=== PATIENT | female | born 1955 | race Caucasian/White ===

== ENCOUNTER 2016-10-07 18:30 | Emergency (ER) | payer OTHER, BC ==
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
[~2016-10-07 18:30] MED LIST: ACETAMINOPHEN PO; AMITRIPTYLINE H25 MG PO; CALCITONIN-SAL3.7 ML; LOTREL 10/20 MG1 CAP PO; MULTI-VITAMIN1 TAB PO; NORCO 5/325 TAB1 TAB PO; OS-CAL 500+D CA1 TAB PO; PANTOPRAZOLE SO40 MG PO; PERCOCET 7.5-31 EACH PO; PRILOSEC PO; PROMETRIUM PO; [UNRECOGNIZED DRUG - OTHER]
== END 2016-10-07 20:01 | disposition home or self-care (01) ==
LOC: SED 18:30
DX: S13.9XXA Sprain of joints and ligaments of unspecified parts of neck, initial encounter (principal); S23.3XXA Sprain of ligaments of thoracic spine, initial encounter; S43.401A Unspecified sprain of right shoulder joint, initial encounter; S20.211A Contusion of right front wall of thorax, initial encounter; Z87.891 Personal history of nicotine dependence; I10 Essential (primary) hypertension; V43.52XA Car driver injured in collision with other type car in traffic accident, initial encounter
CPT/HCPCS: 71250; 72125; 73030; 99284

== ENCOUNTER → 2017-02-04 | Outpatient (CLI) | payer BC ==
--- NOTE | ~2017-02-04 | BD1 ---
[facility] A Service of [facility] / [facility] RADIOLOGY TEXT RESULTS PATIENT: DARIN OWEN LOCATION: [facility] : 51 UNIT #: [id number] AGE: [address]: Jamey Mckeon MD SEX: F ORDER DR: [id number] [address] [address] [id number] O MR#: [id number] Acc #: [id number] NAME: DARIN OWEN : 1955 SEX: F STUDY DATE/TIME: 02/04/2017 8:03 UNIT: [facility] ROOM: STUDY DESCRIPTION: Dexa Bone Dens 1+ Site Attending Physician: Jamey Mckeon M.D. Referring Physician: Jamey Mckeon M.D. Ordering Physician: Jamey Mckeon M.D. Primary Care Physician: Jamey Mckeon M.D. MEDICAL IMAGING REPORT This report is preliminary unless electronic signature is present. EXAM DXA scan, 02/04/2017 HISTORY Status post menopause with no hormone replacement therapy. Osteopenia. Hypertension with blood pressure medication for 15 years. FINDINGS Bone mineral density in the lumbar spine from L1 through L4 was 1.292 g/cm2 which is 0.9 standard deviations above the mean when compared to the young adult reference population which is within the range of normal. This is 2.1 standard deviations above the mean when compared to the age-matched population. Compared with 02/07/2015 there has been a decrease in bone mineral density in the lumbar spine of 1.5%. Bone mineral density in the left femoral neck was 0.809 g/cm2 which is 1.6 standard deviations below the mean when compared to the young adult reference population which is characteristic of osteopenia. This is 0.5 standard deviations below the mean when compared to the age-matched population. Compared with 02/07/2015 there has been a decrease in bone mineral density in the left hip of 2.3%. Bone mineral density in the right femoral neck was 0.86 g/cm2 which is 1.3 standard deviations below the mean when compared to the young adult reference population which is characteristic of osteopenia. This is 0.1 standard deviations below the mean when compared to the age-matched population. Compared with 02/07/2015 there has been a decrease in bone mineral density in the right hip of 1%. IMPRESSION Bone mineral density in the lumbar spine within the range of normal and within the hips bilaterally characteristic of osteopenia. Compared with 02/07/2015 there has been a decrease in bone mineral density in the lumbar spine and the hips bilaterally. [facility] A Service of [facility] RADIOLOGY TEXT RESULTS PATIENT: DARIN OWEN LOCATION: [facility] : 53 UNIT #: [id number] AGE: [address]: Jamey Mckeon MD SEX: F ORDER DR: Dictated by... Jericho Woo M.D. THIS IS AN ELECTRONICALLY VERIFIED REPORT Jericho Woo M.D. at 02/08/2017 2:12 PM GRACIELA/александр TD: 02/08/2017 05:19 JOB #: [id number] MEDICAL IMAGING REPORT Page 1 of 1
== END | disposition home or self-care (01) ==
LOC: SRAD 07:53
DX: M81.0 Age-related osteoporosis without current pathological fracture (principal); Z78.0 Asymptomatic menopausal state
CPT/HCPCS: 77080